=== PATIENT | male | born 1950 | race Caucasian/White ===

== ENCOUNTER 2021-08-08 20:37 | Emergency (ER) | payer OTHER ==
[~2021-08-08] VITALS: Ht 162.6 cm; Wt 68.0 kg
[~2021-08-08 20:37] MED LIST: CLOT1SO TOP; Colace100 MG PO; Dazidox10 MG PO; FURO20 PO; OXYC5 PO; Oxycodone HCl5 M1 PO; POTA10T PO; POTCHL20ER PO; Percocet 10-321 EACH PO; Roxicodone5 MG PO; SPIR50 PO; ULTRA-LIGHT RO1 EACH MC; Vibramycin100 MG PO; ZOLP5 PO; [UNRECOGNIZED DRUG - SUPPLY]
[2021-08-08] MEDS ORDERED: CEPHALEXIN500 MG PO (23:59)
== END 2021-08-09 03:28 | disposition home or self-care (01) ==
LOC: ER 20:37
DX: L03.114 Cellulitis of left upper limb (principal); F22 Delusional disorders; F17.210 Nicotine dependence, cigarettes, uncomplicated
CPT/HCPCS: 73120; 99285-25; A9270

== ENCOUNTER 2021-08-16 13:08 | Emergency (ER) | payer OTHER ==
[~2021-08-16] VITALS: Ht 162.6 cm; Wt 68.0 kg
[~2021-08-16 13:08] MED LIST changes: +CEPHALEXIN500 MG PO; -POTCHL20ER PO
[2021-08-16 14:38] LABS: BASOPHILS ABSOLUTE AUTO 0.05 K/mm3 (0.00-0.23); BASOPHILS PERCENT AUTO 1 % (0-2); EOSINOPHILS ABSOLUTE AUTO 0.06 K/mm3 (0.00-0.68); EOSINOPHILS PERCENT AUTO 1 % (0-6); Hematocrit 50.5 % (37.0-53.0); Hemoglobin 17.9 g/dL (13.5-17.5); IMMATURE GRAN ABSOLUTE AUTO 0.03 K/mm3 (0.00-0.10); IMMATURE GRAN PERCENT AUTO 0 % (0-1); LYMPHOCYTES ABSOLUTE AUTO 0.76 K/mm3 (0.84-5.20); LYMPHOCYTES PERCENT AUTO 8 % (21-46); MONOCYTES ABSOLUTE AUTO 0.74 K/mm3 (0.16-1.47); MONOCYTES PERCENT AUTO 8 % (4-13); Mean Corpuscular HGB 35.7 pg (26.0-34.0); Mean Corpuscular HGB Conc 35.4 g/dL (31.5-36.5); Mean Corpuscular Volume 101 fL (80-100); Mean Platelet Volume 11.2 fL (9.1-12.4); NEUTROPHILS ABSOLUTE AUTO 7.36 K/mm3 (1.96-9.15); NEUTROPHILS PERCENT AUTO 82 % (41-73); Platelet Count 103 K/mm3 (150-400); RDW Coefficient Variation 12.8 % (11.7-14.2); RDW Standard Deviation 48.8 fL (35.1-46.3); Red Blood Cell Count 5.01 M/mm3 (4.30-5.90)
[2021-08-16 14:58] LABS: Alanine Aminotransfer (ALT/SGP 53 U/L (12-78); Albumin/Globulin Ratio 0.8 (0.8-1.8); Alk Phos 117 U/L (50-136); Anion Gap 8 mmol/L (6-16); Aspartate Aminotrans (AST/SGOT 76 U/L (12-37); Bilirubin, Total 3.2 mg/dL (0.1-1.0); Blood Urea Nitrogen 7 mg/dL (8-24); Bun/Creatinine Ratio 10.4 (12.0-20.0); CO2, Blood 25 mmol/L (21-32); Calcium, Blood 8.5 mg/dL (8.5-10.1); Chloride, Blood 109 mmol/L (98-108); Creatinine, Blood 0.67 mg/dL (0.60-1.20); Ethanol (Alcohol), Blood, Med <3 mg/dL; Glomerular Filtration Rate >60 (60-); Glucose, Blood 123 mg/dL (70-99); Potassium, Blood 3.2 mmol/L (3.5-5.5); Sodium, Blood 142 mmol/L (136-145)
[2021-08-16 14:59] LABS: Source, Urine Clean Catch
[2021-08-16 15:01] LABS: Acetaminophen, Random <2.0 ug/mL (10.0-30.0)
[2021-08-16 15:02] LABS: Salicylate <1.7 mg/dL (2.8-20.0)
[2021-08-16 15:07] LABS: Appearance, Urine Hazy (Clear); Blood, Urine 5+ (Neg); Color, Urine Amber (P-Yellow); Glucose Qualitative, Urine Neg (Neg); Ketones, Urine 1+ (Neg); Leukocyte Esterase, Urine 2+ (Neg); Nitrite, Urine Pos (Neg); Protein, Urine 3+ (Neg); Urobilinogen, Urine 3+ (Normal)
[2021-08-16] MEDS ORDERED: Atarax10 MG PO (15:27)
[2021-08-16 15:42] LABS: Bilirubin, Urine 2+ (Neg)
[2021-08-16 15:49] LABS: U Amphetamine Screen DETECTED; U Barbituate Screen Not Detected; U Benzodiazapine Screen Not Detected; U Buprenorphine Screen Not Detected; U Cannabinoids Screen DETECTED; U Cocaine Screen Not Detected; U Methadone Screen Not Detected; U Methamphetamine Screen DETECTED; U Opiates Screen Not Detected; U Oxycodone Screen Not Detected; U Phencyclidine Screen Not Detected; U Propoxyphene Screen Not Detected
[2021-08-16 15:51] LABS: Red Blood Cells, Urine TNTC /hpf (0-2)
[2021-08-16 15:52] LABS: Squamous Epithelial Cells Mod /hpf (Few)
[2021-08-16 15:54] LABS: Bacteria Rare /hpf
== END 2021-08-16 17:35 | disposition home or self-care (01) ==
LOC: ER 13:08
PROVIDERS: Physician Assistant
DX: F15.10 Other stimulant abuse, uncomplicated (principal); S60.512D Abrasion of left hand, subsequent encounter; S60.511D Abrasion of right hand, subsequent encounter; I10 Essential (primary) hypertension; Z79.899 Other long term (current) drug therapy; Z87.891 Personal history of nicotine dependence
CPT/HCPCS: 70450; 80053; 81001; 82140; 85025; 87086; 99283-25; G0480

== ENCOUNTER 2021-08-19 09:51 | Inpatient (IN) | payer OTHER ==
[~2021-08-19] VITALS: Ht 177.8 cm; Wt 74.9 kg
[~2021-08-19 09:51] MED LIST changes: +Atarax10 MG PO
[2021-08-19 10:14] LABS: PCO2 Arterial 35.8 mmHg (35-45); PO2 Arterial 384 mmHg (80-100)
[2021-08-19 10:41] LABS: Hematocrit 46.3 % (37.0-53.0); Hemoglobin 16.1 g/dL (13.5-17.5); Mean Corpuscular HGB 35.9 pg (26.0-34.0); Mean Corpuscular HGB Conc 34.8 g/dL (31.5-36.5); Mean Corpuscular Volume 103 fL (80-100); Mean Platelet Volume 11.2 fL (9.1-12.4); NRBC ABSOLUTE 0.02 K/mm3 (0.00-0.02); NRBC Auto 0.1 /100 WBC (0.0-0.2); Platelet Count 108 K/mm3 (150-400); RDW Coefficient Variation 13.7 % (11.7-14.2); RDW Standard Deviation 51.9 fL (35.1-46.3); Red Blood Cell Count 4.48 M/mm3 (4.30-5.90); White Blood Cell Count 20.09 K/mm3 (4.00-11.30)
[2021-08-19 10:48] LABS: Creatine Kinase MB 125.7 ng/mL (0.0-3.6); Ethanol (Alcohol), Blood, Med <3 mg/dL; Troponin I 0.498 ng/mL (0.000-0.040)
[2021-08-19 10:49] LABS: Alanine Aminotransfer (ALT/SGP 143 U/L (12-78); Albumin/Globulin Ratio 0.6 (0.8-1.8); Alk Phos 106 U/L (50-136); Anion Gap 15 mmol/L (6-16); Aspartate Aminotrans (AST/SGOT 521 U/L (12-37); Bilirubin, Total 5.6 mg/dL (0.1-1.0); Blood Urea Nitrogen 48 mg/dL (8-24); Bun/Creatinine Ratio 14.9 (12.0-20.0); CO2, Blood 20 mmol/L (21-32); Calcium, Blood 8.1 mg/dL (8.5-10.1); Chloride, Blood 103 mmol/L (98-108); Creatinine, Blood 3.22 mg/dL (0.60-1.20); Globulin, Blood 3.1 g/dL (2.2-4.0); Glomerular Filtration Rate 19 (60-); Glucose, Blood 157 mg/dL (70-99); Potassium, Blood 4.2 mmol/L (3.5-5.5); Sodium, Blood 138 mmol/L (136-145); Total Protein, Blood 5.1 g/dL (6.4-8.2)
[2021-08-19 10:53] LABS: CPK Creatine Kinase 5750 U/L (39-308); Creatine Kinase MB Index 2.2 (0.0-4.0)
[2021-08-19 11:04] LABS: Source, Urine Catheter
[2021-08-19 11:11] LABS: SARS-Cov-2 (COVID-19) PCR, MMC NEGATIVE (NEGATIVE)
[2021-08-19 11:16] LABS: Appearance, Urine Turbid (Clear); Blood, Urine 5+ (Neg); Color, Urine Amber (P-Yellow); Glucose Qualitative, Urine 1+ (Neg); Ketones, Urine 1+ (Neg); Leukocyte Esterase, Urine 2+ (Neg); Nitrite, Urine Pos (Neg); Protein, Urine 3+ (Neg); Specific Gravity, Urine 1.025 (1.003-1.022); Urobilinogen, Urine 2+ (Normal)
[2021-08-19 11:36] LABS: Bilirubin, Urine 2+ (Neg)
[2021-08-19 11:37] LABS: Amorphous Light (0-Heavy); Bacteria Few /hpf; Red Blood Cells, Urine TNTC /hpf (0-2); Squamous Epithelial Cells Mod /hpf (Few)
[2021-08-19 11:39] LABS: Hyaline Casts 0-2 /lpf (0-2)
[2021-08-19 11:40] LABS: BAND PERCENT MAN 19 % (0-8); BASOPHILS PERCENT MAN 0 % (0-2); EOSINOPHILS PERCENT MAN 0 % (0-6); LYMPHOCYTES PERCENT MAN 2 % (21-46); MONOCYTES PERCENT MAN 9 % (4-13); NEUTROPHILS ABSOLUTE MAN 17.88 K/mm3 (1.96-9.15); SEG NEUTROPHILS PERCENT MAN 70 % (41-73); TOTAL CELLS COUNTED 100
[2021-08-19 11:40] LABS: U Amphetamine Screen DETECTED; U Barbituate Screen Not Detected; U Benzodiazapine Screen Not Detected; U Buprenorphine Screen Not Detected; U Cannabinoids Screen DETECTED; U Cocaine Screen Not Detected; U Methadone Screen Not Detected; U Methamphetamine Screen DETECTED; U Opiates Screen Not Detected; U Oxycodone Screen Not Detected; U Phencyclidine Screen Not Detected; U Propoxyphene Screen Not Detected
[2021-08-19] MEDS ORDERED: Hair, Skin & N1 EACH PO (12:12)
--- NOTE | 2021-08-19 15:14 | NUR ---
DR. COLEMAN INFORMED OF LACTIC OF 9.0. INFORMED THAT HAS BARBARA RED BLOOD DRAINING FROM RECTUM. INFORMED THAT LACTULOSE VIA RECTUM. STATED HE IS ON HIS WAY.
--- NOTE | 2021-08-19 16:28 | NUR ---
PATIENT TO THE FLOOR AT 1407, PICC LINE PLACED CAN, NO RESPONSES, FLACCID, RECTAL TUBE PLACED, BARBARA BLOOD CAME OUT OF THE RECTAL TUBE, REPORTED TO DR COLEMAN, MOTTLED SKIN, COLD BLUE TOES AND FINGERS, LEVOPHED STARTED, LR AT 150 ML/HR, RESTRAINTS IN PLACE, CHEST XRAY, UNABLE TO MAKE NEEDS KNOWN, WCTM
--- NOTE | 2021-08-19 16:44 | NUR ---
LEFT FOREARM 22 G, LEFT AC 18Q, THERE IS NO RIGHT FA IV SITE
[2021-08-19 16:55] LABS: Hematocrit 46.2 % (37.0-53.0)
--- NOTE | 2021-08-19 16:59 | NUR ---
PICC LINE PLACED TO CAN. PICC INITIALY 5CM OUT, THEN PULLED AN ADDITIONAL 7CM OUT. REPEAT CHEST XRAY READ BY DR GABRIEL. PICC NOW IN CAJ;GOOD PLACEMENT
--- NOTE | 2021-08-19 17:09 | NUR ---
Spoken with primary RN Reta several times, attempt to locate pt's code status or next of kin. [facility], and according to [facility], the pt's information has no next of kin, only friends, as reflected on [facility] face sheet as well. Information relayed to Reta.
[2021-08-19 17:28] LABS: Albumin, Blood 1.9 g/dL (3.4-5.0); Albumin/Globulin Ratio 0.7 (0.8-1.8); Bilirubin, Total 5.6 mg/dL (0.1-1.0); Bun/Creatinine Ratio 15.3 (12.0-20.0); Calcium, Blood 6.9 mg/dL (8.5-10.1); Creatinine, Blood 3.07 mg/dL (0.60-1.20); Globulin, Blood 2.7 g/dL (2.2-4.0); Potassium, Blood 4.9 mmol/L (3.5-5.5); Total Protein, Blood 4.6 g/dL (6.4-8.2)
--- NOTE | 2021-08-19 18:12 | NUR ---
DR. COLEMAN FREQUENTLY IN AND OUT OF ROOM. AWARE THAT PATIENT'S BP IS HAVING A HARD TIME READING AND FREQUENTLY ONLY DISPLAYS MEAN WITH NO SYSTOLIC OR DIASTOLIC PRESSURE. PATIENT GIVEN 2 MG ATIVAN FOR SIGNS OF POSSIBLE SEIZURES. PATIENT BOTTOM JAW BOBBING OUT IN RHYTHMIC MOTION. [place] AT BEDSIDE TO SEE.
--- NOTE | 2021-08-19 19:16 | NUR ---
PATIENT MAPS 40 OR UNREADABLE, VASOPRESSIN, LEVOPHED AND LR INFUSING, PICC LINE CAN, BEAR HUGGER ON, TEMP 98.2, DIMINISHED LS, INTUBATED 16/400/5/100%, POOR PERFUSION, MOTTLED, TOES AND FINGERS BLUE AND COLD, OG TUBE SCANT BROWN COFFEE, RECTAL TUBE INPLACE, DR COLEMAN AWARE OF TROPONIN 0.556, LACTIC ACID 9, AMMONIA 415, HYPOTENSION, CHANGED TO DNR STATUS, WILL RELAY TO PM LISSETT
--- NOTE | 2021-08-19 20:29 | NUR ---
PT RECEIVED FROM FRANK RN. PT LYING SUPINE IN BED, ON VENTILATOR AC/VC 18, 550 vT, 10 PEEP, 100%. TEMPERATURE READING 98.6 VIA PROBE. SATS NOT REGISTERING FROM ANY SITE, ALTHOUGH CLOSEST READING FROM HEAD STATES 80%. PT'S BLOOD PRESSURE IS NOT READING, PULSES ON DORSAL FEET FOUND BY DOPPLAR, CORRELATE WITH HEART RATE. PT WITH GUPPY TYPE JAW MOVEMENT AROUND ETT, MOUTH WITH EVIDENCE OF OLD BLOOD. TUBE 8.0 27CM @ TEETH. PUPILS ARE UNEQUAL, RIGHT LARGE AND UNRESPONSIVE, LEFT WITH SCLERAL EDEMA, YELLOW JAUNDICE IN COLOR, NO PUPILLARY RESPONSE. LEFT CHEEK AND EYE SOCKET SWOLLEN. LEGS ECCHYMOTIC, MOTTLED KNEES, LUNG SOUNDS DIMINISHED WITH RHONCHI. ABDOMEN SOFT, OG TO LIS WITH BROWN/RED RETURN. RECTAL TUBE WITH RED LIQUID RETURN. PAS PLACED. LEVOPHED @ 30MCG/MIN, VASOPRESSIN @ 0.04U/HR. LR @ 250ML/HR, VANCOMYCIN STARTED. ORAL CARE COMPLETE, CATH CARE COMPLETE, BLEEDING WITH ANY CARE. LEFT HAND REDRESSED, AVULSION TO THE LEFT HAND, LARGE GRADE. FRIEND BRENTON BROUGHT IN TO BE WITH PATIENT, CONCERNED FOR PT NOT PASSING ALONE. JOHN JIMÉNEZ REMAINS ON, TEMP READING UP TO 99.5, TURNED TO AMBIENT AIR FLOW.
--- NOTE | 2021-08-19 22:14 | NUR ---
LATE ENTRY: PATIENTS FRIENDS; EVERETT, TANNER AND BRENTON IN WITH PATIENT. PT WAS BREATHING WITH THE VENTILATOR, RHYTHM CHANGE NOTED. THE MEN LEFT ROOM, ONLY EVERETT REMAINED, AUSCULATION OF HEART TONES, REVEALED NOTHING. STUCCO MASON, KRISTIN CALLED TO LISTEN WELL. VENTILATOR TURNED OFF, PT WITH NO AUDIBLE HEART TONES, PRONOUNCED AT 2145. EVERETT REMAINED WITH PATIENT FOR A BIT LONGER. ELECTRICAL HEART RHYTHM EVENTUALLY STOPPED. SEE CHART FOR DETAILS. SOCIAL PSYCHOLOGIST CALLED, MORTUARY CALLED WELL.
--- NOTE | 2021-08-20 07:47 | NUR ---
Ethics consultation service provided telephonically. 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 Under these dire and unfortuntate conditions, per ORS 127.635 (b), with appropriate provider attestation, his code status may be altered to a non-aggressive approach. Thank you for this consult. Ravinder Griffith ThD
== END 2021-08-19 21:45 | DRG 871 ==
LOC: ER 09:51 → ICUW 13:30
PROVIDERS: Emergency Medicine; Internal Medicine Critical Care Medicine; Nurse Practitioner Acute Care; ADMIT Internal Medicine
PROC: 5A12012 Performance of Cardiac Output, Single, Manual (ICD-10-PCS; principal; 2021-08-19)
PROC: 02HV33Z Insertion of Infusion Device into Superior Vena Cava, Percutaneous Approach (ICD-10-PCS; 2021-08-19)
PROC: 5A1935Z Respiratory Ventilation, Less than 24 Consecutive Hours (ICD-10-PCS; 2021-08-19)
PROC: 3E033XZ Introduction of Vasopressor into Peripheral Vein, Percutaneous Approach (ICD-10-PCS; 2021-08-19)
DX: A41.9 Sepsis, unspecified organism (principal); G92.8 Other toxic encephalopathy; I21.A1 Myocardial infarction type 2; J18.9 Pneumonia, unspecified organism; N17.9 Acute kidney failure, unspecified; M62.82 Rhabdomyolysis; E72.20 Disorder of urea cycle metabolism, unspecified; Z99.11 Dependence on respirator [ventilator] status; Z78.1 Physical restraint status; Z66 Do not resuscitate; R65.20 Severe sepsis without septic shock; F10.20 Alcohol dependence, uncomplicated; Z20.822 Contact with and (suspected) exposure to COVID-19; K74.60 Unspecified cirrhosis of liver; I10 Essential (primary) hypertension; B19.20 Unspecified viral hepatitis C without hepatic coma; F41.9 Anxiety disorder, unspecified; F43.10 Post-traumatic stress disorder, unspecified; G40.901 Epilepsy, unspecified, not intractable, with status epilepticus; M19.90 Unspecified osteoarthritis, unspecified site; Z98.890 Other specified postprocedural states
CPT/HCPCS: 31720; 36569; 36600; 51702; 70450; 71045; 72125; 80053; 81001; 82140; 82550; 82553; 82803; 82947; 83605; 84484; 85014; 85018; 85025; 85730; 86850; 86900; 86901; 87040; 87070; 87077; 87086; 87186; 87205; 93005; 93010; 94002; 96365-59; 96367-59; 96375-59; 99291-25; A9270; C1751; C9113; G0480; J0456; J0696; J1720; J2060; J3370; J7030; J7050; J7060; J7120; U0004